=== PATIENT | male | born 1990 | race Caucasian/White ===

== ENCOUNTER 2021-03-22 10:22 | Emergency (ER) | payer BC, OTHER ==
[~2021-03-22] VITALS: Ht 177.8 cm; Wt 90.0 kg
[2021-03-22 10:25] VITALS: BP 120/77
[2021-03-22] MEDS ORDERED: orphenadrine citrate 60mg/2ml inj. IM ONE (11:00)
[2021-03-22] MEDS ORDERED: ketorolac tromethamine 15mg/ml inj. IM ONE (11:00)
[2021-03-22] MEDS ORDERED: METH-798 PO (11:20)
== END 2021-03-22 11:29 | disposition home or self-care (01) ==
LOC: ER 10:23 → EEVIPCON 10:23 → ER 11:29
DX: G89.29 Other chronic pain (principal); M54.50 Low back pain, unspecified; Z79.899 Other long term (current) drug therapy
CPT/HCPCS: 96372; 99284; J1885; J2360